=== PATIENT | female | born 1985 | race Caucasian/White ===

== ENCOUNTER 2018-05-24 09:08 | Inpatient (IN) ==
[2018-05-24] MEDS ORDERED: miSOPROStol 200 MCG Tablet RECTAL PRN (09:47)
[2018-05-24] MEDS ORDERED: Tranexamic Acid Inj 1,000 MG in Sodium Chlor 0.9% Inj 100 ML IV.SIG PRN (09:47)
[2018-05-24] MEDS ORDERED: Sod Chloride 0.9% Inj 1,000 ML IV.CONT PRN (09:47)
[2018-05-24] MEDS ORDERED: Sodium Chlor 0.9% Inj 500 ML IV.SIG PRN (09:47)
[2018-05-24] MEDS ORDERED: fentaNYL Citrate Inj 100 MCG/2 ML Ampul IV.PUSH PRN ×2 (09:47)
[2018-05-24] MEDS ORDERED: Naloxone Inj 0.4 MG/ML Vial IV.PUSH PRN ×2 (09:47→23:43)
[2018-05-24] MEDS ORDERED: Methylergonovine Inj 0.2 MG/ML Ampul IM PRN (09:47)
[2018-05-24] MEDS ORDERED: Silver Nitrate/Potassium Nitrate Applicator Sticks TOPICAL PRN (09:47)
[2018-05-24] MEDS ORDERED: Carboprost Tromethamine Inj 250 MCG/ML Ampul IM PRN (09:47)
[2018-05-24] MEDS ORDERED: Oxytocin 30 Units/500ml Premix 30 UNITS/500 ML BAG IV.SIG ONE (09:47)
[2018-05-24] MEDS ORDERED: Citric Acid/Sodium Citrate Liq 30 ML UDC PO SCH (10:00)
--- NOTE | 2018-05-24 10:05 | P.HPOB ---
History of Present Illness Primary Care Physician: No Primary Care Physician Chief Complaint: oligohydramnios History of Present Illness: 32 yo with iup at 37w6d by first trimester u/s was seen yesterday for bola visit. She stated that she has had significantly reduced movement. She states that she may feel 1-2 movements. She did have a bpp that was 8/8, prolonged monitoring on AP that was reassuring/reactive over 4 hours and she did note increased movement. Denies present contractions, vb, or lof. She was scheduled this am at [facility] for repeat bpp that noted oligohydramnios so she will be admitted for iol. She is GBS negative, O +. She has had good pnc initiated at 7 wk. PNC c/b : hypothyroidism - on armour thyroid 45 micrograms anxiety - on zoloft 50mg daily HSV - on valtrex suppression and no active lesions UDF - desires btl S>D - last growth u/s at 35wk 84%ile( st 6 lb 11 oz) with AC and FL 90%ile PMH: anxiety, hypothyroid, seasonal allergies PSH: denies OB : G1 MAB 11 wk; G2 09/2015 FT [employer], Male, 7 lb 11 oz [employer]: h/o HPV not 16/18 in 2017. HSV Fam: Denies genetic disorders Soc: neg tob/etoh,doa. Works at [employer] - Inpatient Certification I certify that the inpatient services were ordered in accordance with Medicare regulations governing the order. This includes certification that hospital inpatient services are reasonable and necessary and in the case of services not specified as inpatient-only under 42 CFR 419.22(n), that they are appropriately provided as inpatient services in accordance to with the 2-midnight benchmark under 43 CFR 412.3(e) Estimated Total Length of Stay (Days): 3 Plans for Post Hospital Care: Home Review of Systems All other systems reviewed negative except as stated in HPI PMFSH - Travel History Recent Travel in the [place] Within the Last 8 Weeks: No Recent Travel Out of the Country Within the Last 8 Weeks: No - Immunization History Tetanus Immunization: <5 Years Hx Influenza Vaccine This Season: No Medications and Allergies Active Medications: Active Medications Carboprost Tromethamine (Hemabate Inj) 250 mcg IM PRN PRN PRN Reason: hemorrhage see labe Citric Acid/Sodium Citrate (Sodium Citrate/Citric Acid Liq) 30 ml PO [facility] Stop: 05/28/18 09:59 Fentanyl Citrate (Fentanyl Inj) 100 mcg IV.PUSH Q1H PRN PRN Reason: PAIN SCALE 6 TO 10 Fentanyl Citrate (Fentanyl Inj) 50 mcg IV.PUSH Q1H PRN PRN Reason: Pain Scale 3 - 5 Lactated Ringer's (Lr 1000 Ml Inj) 1,000 mls @ 125 mls/hr IV.CONT .Q8H DANN Lactated Ringer's (Lr 1000 Ml Inj) 1,000 mls @ 3,000 mls/hr IV.SIG UNSCH PRN PRN Reason: compromise or epidural Sodium Chloride (Ns Inj) 500 mls @ 1,000 mls/hr IV.SIG UNSCH PRN PRN Reason: SEE LABEL COMMENTS Sodium Chloride (Ns Inj) 1,000 mls @ 100 mls/hr IV.CONT .Q10H PRN PRN Reason: SEE LABEL COMMENTS Oxytocin (Pitocin 30 Units/Ns 500 Ml Premix) 30 units in 500 mls @ 999 mls/hr IV.SIG BOLUS ONE Stop: 05/24/18 10:17 Tranexamic Acid 1,000 mg/ (Sodium Chloride) 110 mls @ 200 mls/hr IV.SIG ONCE PRN PRN Reason: hemorrhage Lidocaine HCl (Xylocaine 1% Inj) 0.1 ml I-DERMAL PRN PRN PRN Reason: For IV start Stop: 05/27/18 09:46 Lidocaine HCl (Xylocaine 1% Inj) 10 ml INFILTRATN UNSCH PRN PRN Reason: For episiotomy repair Methylergonovine Maleate (Methergine Inj) 0.2 mg IM PRN PRN PRN Reason: SEE LABEL COMMENTS Mineral Oil (Muri-Lube Oil) 10 ml TOPICAL PRN PRN PRN Reason: PRN perineal massage Misoprostol (Cytotec) 800 mcg RECTAL PRN PRN PRN Reason: hemorrhage Misoprostol (Cytotec) 25 mcg VAGINAL ONCE ONE Stop: 05/24/18 09:48 Misoprostol (Cytotec) 25 mcg VAGINAL ONCE PRN PRN Reason: For cervical ripening Stop: 05/25/18 13:48 Naloxone HCl (Narcan Inj) 0.1 mg IV.PUSH Q2M PRN PRN Reason: for opiate reversal Ondansetron HCl (Zofran Inj) 4 mg IV.PUSH Q6H PRN PRN Reason: NAUSEA OR VOMITING Oxytocin (Pitocin Inj) 10 unit IM PRN PRN PRN Reason: SEE LABEL COMMENTS Silver Nitrate/Potassium Nitrate (Silver Nitrate Applicators) 1 applicator TOPICAL PRN PRN PRN Reason: Vaginal laceration bleeding Sodium Chloride (Ns Flush) 2 ml IV.FLUSH BID DANN Sodium Chloride (Ns Flush) 2 ml IV.FLUSH PRN PRN PRN Reason: FLUSH AFTER USING IV ACCESS Terbutaline Sulfate (Brethine Inj) 0.25 mg SQ PRN PRN PRN Reason: Uterine Tachysystole Allergies Allergy/AdvReac Type Severity Reaction Status Date / Time No Known Allergies Allergy Verified 05/23/18 14:59 Home Medications Medication Instructions Recorded Confirmed Type vit,[id number] 1 tab PO DAILY 05/23/18 05/23/18 History [PNV 29-1] sertraline [Zoloft] 50 mg PO DAILY 05/23/18 05/23/18 History thyroid (pork) [ADDICTIONS THERAPIST Thyroid] 60 mg PO DAILY 05/23/18 05/24/18 History valacyclovir [Valtrex] 500 mg PO DAILY 05/23/18 05/24/18 History Exam Vital signs: Vital Signs 05/24/18 09:24 Temperature 97.8 F Pulse Rate 98 H Respiratory Rate 18 Blood Pressure 130/70 Intake & Output 05/23/18 05/24/18 05/24/18 18:59 06:59 18:59 Weight 90.718 kg Other: Weight On Admission 90.718 kg - Constitutional no acute distress - Routine HEENT Exam Head: Present: normocephalic Eye: Present: EOMI - Routine Neck Exam Present: full ROM - Routine Respiratory Exam Present: CTA bilaterally. Absent: accessory muscle use - Routine Cardiovascular Exam Present: RRR. Absent: murmur - Routine Abdominal Exam Comments: gravid - Routine Exam Comments: 3 - Routine Extremities Exam Absent: cyanosis, clubbing, edema - Routine Neurological Exam Present: alert, oriented X3 Results - Labs Group B Strep: Negative Caprini VTE Risk Assessment Caprini VTE Risk Assessment: No/Low Risk (score <= 1) Caprini Risk Assessment Model: Point Value = 1 Point Value = 2 Point Value = 3 Point Value = 5 Age 41-60 Minor surgery BMI > 25 kg/m2 Swollen legs Varicose veins or History of unexplained or recurrent spontaneous Oral contraceptives or hormone replacement Sepsis (< 1 month) Serious lung disease, including pneumonia (< 1 month) Abnormal pulmonary function Acute myocardial infarction Congestive heart failure (< 1 month) History of inflammatory bowel disease Medical patient at bed rest Age 61-74 Arthroscopic surgery Major open surgery (> 45 min) Laparoscopic surgery (> 45 min) Malignancy Confined to bed (> 72 hours) Immobilizing plaster cast Central venous access Age >= 75 History of VTE Family history of VTE Factor V Leiden Prothrombin [id number] Lupus anticoagulant Anticardiolipin antibodies Elevated serum homocysteine Heparin-induced thrombocytopenia Other congenital or acquired thrombophilia Stroke (< 1 month) Elective arthroplasty Hip, pelvis, or leg fracture Acute spinal cord injury (< 1 month) Prophylaxis Regimen: Total Risk Factor Score Risk Level Prophylaxis Regimen 0-1 Low Early ambulation 2 Moderate Order ONE of the following: *Sequential Compression Device (SCD) *Heparin 5000 units SQ BID 3-4 Higher Order ONE of the following medications: *Heparin 5000 units SQ TID *Enoxaparin/Lovenox 40 mg SQ daily (WT < 150 kg, CrCl > 30 mL/min) *Enoxaparin/Lovenox 30 mg SQ daily (WT < 150 kg, CrCl > 10-29 mL/min) *Enoxaparin/Lovenox 30 mg SQ BID (WT < 150 kg, CrCl > 30 mL/min) AND/OR *Sequential Compression Device (SCD) 5 or more Highest Order ONE of the following medications: *Heparin 5000 units SQ TID (Preferred with Epidurals) *Enoxaparin/Lovenox 40 mg SQ daily (WT < 150 kg, CrCl > 30 mL/min) *Enoxaparin/Lovenox 30 mg SQ daily (WT < 150 kg, CrCl > 10-29 mL/min) *Enoxaparin/Lovenox 30 mg SQ BID (WT < 150 kg, CrCl > 30 mL/min) AND *Sequential Compression Device (SCD) Assessment and Plan - Diagnosis (1) Oligohydramnios Code(s): O41.00X0 - Oligohydramnios, unspecified trimester, not applicable or unspecified Status: Acute (2) 37 weeks gestation of Code(s): Z3A.37 - 37 weeks gestation of Status: Acute (3) Decreased movement Code(s): O36.8190 - Decreased movements, unspecified trimester, not applicable or unspecified Status: Acute (4) Anxiety Code(s): F41.9 - Anxiety disorder, unspecified Status: Acute (5) HSV (herpes simplex virus) anogenital infection Code(s): A60.9 - Anogenital herpesviral infection, unspecified Status: Acute - Plan 32 yo with iup at 37w6d by first trimester u/s admitted for ioil for oligohydramnios. 1) IOL- will start iol with cervidil, then arom and pit as needed. BPP this am repeated after observation yesterday for decreased movement. 2) GBS negative 3) hypothyroidism - on armour thyroid 45 micrograms 4) anxiety - on zoloft 50mg daily 5) HSV - on valtrex suppression and no active lesions 6) UDF - desires btl 7) S>D - last growth u/s at 35wk 84%ile (wt 6 lb 11 oz) with AC and FL 90%ile.
[2018-05-24 10:27] LABS: Baso % (Auto) 0.2 % (0.0-2.0); Eos # (Auto) 0.1 th/mm3 (0.0-0.4); Eos % (Auto) 0.7 % (0.0-4.0); Hematocrit 34.9 % (35.0-46.0); Hemoglobin 11.9 gm/dL (11.6-15.3); Lymph # (Auto) 1.7 th/mm3 (1.0-4.8); Lymph % (Auto) 19.4 % (9.0-44.0); Mean Corpuscular Hemoglobin 28.9 pg (27.0-34.0); Mean Platelet Volume 8.7 fL (7.0-11.0); Mono # (Auto) 0.5 th/mm3 (0.0-0.9); Mono % (Auto) 5.9 % (0.0-8.0); Neut # (Auto) 6.3 th/mm3 (1.8-7.7); Neut % (Auto) 73.8 % (16.0-70.0); Platelet Count 195 th/mm3 (150-450); White Blood Count 8.6 th/mm3 (4.0-11.0)
[2018-05-24 10:35] LABS: Amorphous Sediment,Urine Few /hpf; Bacteria,Urine Rare /hpf; Bilirubin,Urine Negative (Negative); Color,Urine Yellow (Yellw/Straw); Glucose,Urine (UA) Negative (Negative); Leukocyte Esterase,Urine Negative (Negative); Mucus,Urine Few /lpf (Occasional); Nitrite,Urine Negative (Negative); Specific Gravity,Urine 1.014 (1.002-1.035); Squamous Epithelial Cell,Urine 1 /hpf (0-5)
[2018-05-24 10:36] LABS: Clarity,Urine Hazy (Clear)
[2018-05-24] MEDS ORDERED: Diphtheria/Tetanus/Pertussis Vaccine Inj 0.5 ML Syringe IM ONE (16:00)
[2018-05-24] MEDS ORDERED: Oxytocin 30 Units/500ml Premix 30 UNITS/500 ML BAG IV.SIG PRN (16:29)
--- NOTE | 2018-05-24 16:41 | P.OBGPN ---
S: No leakage of fluid doing well having some cramping O: Exam: Deferred FHTs: 120s-130s, moderate variability, accelerations present, overall no decelerations, did have a spontaneous prolonged decelerations lasting 2 minutes with good recovery TOCO: Contractions every 2-3 minutes A/P 32-year-old here at 37 weeks and 6 days for an induction of labor secondary to new finding of oligohydramnios 1. IUP: Category 1 tracing -Female fetus, cephalic by ultrasound today, anterior placenta -Estimated weight on 05/24/2018 equals 3331 g in the 62nd percentile, BRAULIO 4.8 today. 2. Induction of labor secondary to #3, patient score unfavorable, status post PV miso 25 mcg x2, will continue doses up to 4-5, may need further cervical ripening, will continue to watch her for any signs of distress. Anticipate 3. Oligohydramnios: Unknown etiology for delivery, 4. HSV: Has been on prophylaxis throughout her late third trimester, no lesions on arrival 5. Anxiety: Continue home medication 6. Hypothyroidism: Continue home medication
--- NOTE | 2018-05-24 20:28 | P.OBGPN ---
S: No leakage of fluid doing well having some cramping O: Exam: 3-/-2 AROm this check, clear fluid FHTs: 120s-130s, moderate variability, accelerations present, no decelerations, TOCO: Contractions every 2-3 minutes A/P 32-year-old here at 37 weeks and 6 days for an induction of labor secondary to new finding of oligohydramnios 1. IUP: Category 1 tracing -Female fetus, cephalic by ultrasound today, anterior placenta -Estimated weight on 05/24/2018 equals 3331 g in the 62nd percentile, BRAULIO 4.8 today. 2. Induction of labor secondary to #3, cervix changing after 2 dose PV miso, AROm now (815pm) begin pit if no change in 2 hours. Anticipate 3. Oligohydramnios: Unknown etiology, is for delivery, 4. HSV: Has been on prophylaxis throughout her late third trimester, no lesions on arrival 5. Anxiety: Continue home medication 6. Hypothyroidism: Continue home medication
[2018-05-24] MEDS ORDERED: fentaNYL 2MCG-Bupiv 0.125% Epi 150 ML EPIDURAL ONE (20:33)
[2018-05-24] MEDS ORDERED: Lidocaaine 1.5%/Epinephrine 1:200,000 PF Inj 5 ML Amp ONE (21:31)
[2018-05-24] MEDS ORDERED: Lidocaine PF 1% Inj 5 ML Vial ONE (21:31)
[2018-05-24] MEDS ORDERED: fentaNYL Citrate Inj 100 MCG/2 ML Ampul EPIDURAL ONE (22:39)
[2018-05-24] MEDS ORDERED: fentaNYL 2MCG-Bupiv 0.125% Epi 150 ML EPIDURAL PRN (22:39)
--- NOTE | 2018-05-24 23:33 | P.OP ---
Surgeon: Jett Levine MD Operation and Findings: Preoperative diagnosis: 1. Intrauterine at 37 weeks and 6 days 2. Oligohydramnios 3. Hypothyroidism 4. Anxiety Postop diagnosis 1. Same as above status post delivery Procedure 1. Term spontaneous vaginal delivery Surgeon Dr. Jett Levine Alemite Operator: Summer labor and delivery nursing staff Findings: 1. Viable female at 2311, Apgars 8 and 8, weight 3030grams 2. Intact placenta 3 vessel cord at 2315 3. Second-degree perineal laceration repaired with 3-0 Vicryl Anesthesia: Epidural Specimen: Placenta to disposal Estimated blood loss: 300 cc Fluid replacement: Lactated Ringer's and Pitocin Urine output: None recorded DVT prophylaxis: None required Antibiotics: None required Counts: correct x2 Time out done: yes Disposition: Stable to Indications: Patient is a 32-year-old who presented for induction of labor secondary to new finding of oligohydramnios on a routine ultrasound done for decreased movement, she had misoprostol placed for cervical ripening, she was artificially ruptured and progressed after this without further augmentation with reassuring heart tones I was called to the room when she was complete and ready to push. Description of procedure: The patient began pushing after the bed was broken down, the head upon was allowed to restitute naturally for delivery with a supported perineum, with gentle downward guidance the anterior shoulder was delivered followed by gentle upper guidance for the posterior shoulder, the torso and lower extremities were delivered with ease and with continued perineal support. The infant had spontaneous cry and was placed on mom's abdomen for skin to skin contact, we allowed delayed cord clamping. After the cord was clamped and cut, cord blood was obtained. Pitocin was bolused and with fundal massage the placenta was delivered, there is minimal uterine bleeding and uterus was firm. The perineum, vagina and cervix were inspected and found second-degree which was repaired with 3-0 Vicryl in a standard fashion. The patient tolerated the procedure well and was left in the birthing suite with her .
[2018-05-24] MEDS ORDERED: Oxytocin 30 Units/500ml Premix 30 UNITS/500 ML BAG IV.CONT PRN (23:43)
[2018-05-24] MEDS ORDERED: Zolpidem Tartrate 5 MG Tablet PO PRN (23:43)
[2018-05-24] MEDS ORDERED: Benzocaine 20% Top Spray 60 ML Can TOPICAL PRN (23:43)
[2018-05-24] MEDS ORDERED: Bisacodyl 10 MG Supp RECTAL PRN (23:43)
[2018-05-24] MEDS ORDERED: Acetaminophen 325 MG Tablet PO PRN (23:43)
[2018-05-25 01:21] VITALS: RESP 18
[2018-05-25] MEDS: Witch Hazel 50%/Glyderin 12.5% 40 Pad Jar RECTAL PRN (01:36)
[2018-05-25] MEDS: Thyroid 60 MG Tablet PO SCH (05:41)
[2018-05-25] MEDS ORDERED: Measles/Mumps/Rubella Vaccine Inj 0.5 ML Vial SQ ONE (06:00)
[2018-05-25] MEDS ORDERED: Thyroid 15 MG Tablet PO SCH (09:00)
[2018-05-25] MEDS ORDERED: valACYclovir 500 MG Tab PO SCH (09:00)
[2018-05-25] MEDS: Senna/Docusate Sodium 8.6/50 MG Tablet PO SCH ×2 (09:04→20:50)
[2018-05-25] MEDS: Prenatal Vit/Ca/Iron/Folic Acid Tablet PO SCH (09:04)
--- NOTE | 2018-05-25 09:50 | P.PNOB ---
Subjective Post day: 1 Interval history: Doing well, pain controlled, ambulating without difficulty, vaginal bleeding less than menses Objective Vital Signs/I&O: Vital Signs 05/24/18 11:55 05/24/18 13:45 05/24/18 15:55 Temperature Pulse Rate 96 H 88 Respiratory Rate 16 Blood Pressure 120/85 117/63 05/24/18 16:00 05/24/18 16:50 05/24/18 17:55 Temperature 98.7 F Pulse Rate 89 110 H Respiratory Rate 16 Blood Pressure 05/24/18 19:25 05/24/18 19:36 05/24/18 19:40 Temperature 98.1 F Pulse Rate 88 82 80 Respiratory Rate 18 Blood Pressure 130/78 05/24/18 19:45 05/24/18 20:00 05/24/18 20:05 Temperature Pulse Rate 82 80 94 H Respiratory Rate Blood Pressure 05/24/18 20:10 05/24/18 20:40 05/24/18 20:45 Temperature Pulse Rate 80 82 79 Respiratory Rate Blood Pressure 05/24/18 20:50 05/24/18 20:52 05/24/18 20:55 Temperature Pulse Rate 83 107 H 88 Respiratory Rate Blood Pressure 119/102 H 05/24/18 20:56 05/24/18 21:05 05/24/18 21:10 Temperature Pulse Rate 100 H 96 H 96 H Respiratory Rate 20 Blood Pressure 125/82 120/86 137/78 05/24/18 21:15 05/24/18 21:20 05/24/18 21:25 Temperature Pulse Rate 96 H 99 H 111 H Respiratory Rate Blood Pressure 119/67 113/68 139/74 05/24/18 21:31 05/24/18 21:35 05/24/18 21:40 Temperature Pulse Rate 95 H 88 93 H Respiratory Rate Blood Pressure 125/71 128/66 144/67 H 05/24/18 21:45 05/24/18 21:50 05/24/18 21:51 Temperature Pulse Rate 97 H 87 96 H Respiratory Rate Blood Pressure 135/77 130/65 05/24/18 22:00 05/24/18 22:05 05/24/18 22:11 Temperature 97.6 F Pulse Rate 93 H 84 77 Respiratory Rate 18 Blood Pressure 118/62 116/58 L 05/24/18 22:25 05/24/18 22:35 05/24/18 22:40 Temperature Pulse Rate 111 H 114 H 84 Respiratory Rate Blood Pressure 129/99 H 05/24/18 22:45 05/24/18 22:50 05/24/18 23:00 Temperature Pulse Rate 102 H 90 94 H Respiratory Rate Blood Pressure 124/83 05/24/18 23:05 05/24/18 23:30 05/24/18 23:31 Temperature Pulse Rate 73 87 Respiratory Rate 18 Blood Pressure 112/59 L 131/65 05/24/18 23:45 05/25/18 00:00 05/25/18 00:03 Temperature 97.7 F Pulse Rate 78 Respiratory Rate 18 17 Blood Pressure 124/73 05/25/18 00:18 05/25/18 00:30 05/25/18 01:20 Temperature 98.3 F Pulse Rate 81 98 H 75 Respiratory Rate 18 Blood Pressure 111/55 L 124/73 108/68 05/25/18 08:06 Temperature 97.7 F Pulse Rate 81 Respiratory Rate 18 Blood Pressure 113/68 Intake & Output 05/24/18 05/25/18 05/25/18 18:59 06:59 18:59 Weight 90.718 kg Other: Weight On Admission 90.718 kg Result Diagrams: 05/24/18 09:35 Objective Remarks: GENERAL: Well-nourished, well-developed patient. CARDIOVASCULAR: Regular rate and rhythm without murmurs, gallops, or rubs. RESPIRATORY: Breath sounds equal bilaterally. No accessory muscle use. ABDOMEN/GI: Abdomen soft, non-tender. Fundus: Firm, non-tender at umbilicus. GENITOURINARY: Light to moderate bleeding. EXTREMITIES: No cyanosis or edema, non-tender, without signs of DVT. Medications and IVs: Active Medications Acetaminophen (Tylenol) 650 mg PO Q4H PRN PRN Reason: PAIN SCALE 1 TO 2 Al Hydroxide/Mg Hydroxide (Milk Of Magnesia Liq) 30 ml PO Q12H PRN PRN Reason: Mild Constipation Benzocaine (Americaine 20% Top [place]) 1 spray TOPICAL Q4H PRN PRN Reason: For Perineum Discomfort Last Admin: 05/25/18 01:36 Dose: 1 spray Bisacodyl (Dulcolax Supp) 10 mg RECTAL DAILY PRN PRN Reason: SEVERE CONSITIPATION Ephedrine Sulfate (Ephedrine/Ns Syringe) 10 mg IV.PUSH UNSCH PRN PRN Reason: SEE LABEL COMMENTS Stop: 05/25/18 22:39 Oxytocin (Pitocin 30 Units/Ns 500 Ml Premix) 30 units in 500 mls @ 2 mls/hr IV.SIG TITRATE PRN; Protocol PRN Reason: For induction of labor Fentanyl/Bupivacaine/Sodium Chlor (Fentanyl 2 Mcg-Bupiv 0.125% Epi) 150 mls @ 12 mls/hr EPIDURAL PRN PRN PRN Reason: for Labor Pain Last Admin: 05/24/18 21:44 Dose: 12 mls/hr Oxytocin (Pitocin 30 Units/Ns 500 Ml Premix) 30 units in 500 mls @ 100 mls/hr IV.CONT UNSCH PRN PRN Reason: Heavy bleeding Ibuprofen (Motrin) 800 mg PO Q8H PRN PRN Reason: For Cramping Last Admin: 05/25/18 04:43 Dose: 800 mg Lactulose (Lactulose Liq) 30 ml PO DAILY PRN PRN Reason: SEVERE CONSITIPATION Miscellaneous Information (Misc Information) 1 each OTHER UNSCH PRN PRN Reason: SEE LABEL COMMENTS Stop: 05/25/18 22:39 Miscellaneous Information (Misc Information) 1 each OTHER UNSCH PRN PRN Reason: SEE LABEL COMMENTS Stop: 05/25/18 22:39 Naloxone HCl (Narcan Inj) 0.1 mg IV.PUSH Q2M PRN PRN Reason: for opiate reversal Ondansetron HCl (Zofran Odt) 4 mg PO Q6H PRN PRN Reason: NAUSEA OR VOMITING Vit/Calcium/Iron/Folic Ac (Stuartnatal Plus 3) 1 tab PO DAILY DANN Last Admin: 05/25/18 09:04 Dose: 1 tab Senna/Docusate Sodium (Felisha-Colace) 1 tab PO BID DANN Last Admin: 05/25/18 09:04 Dose: 1 tab Sennosides (Senokot) 17.2 mg PO Q12H PRN PRN Reason: Moderate Constipation Sertraline HCl (Zoloft) 50 mg PO HS DANN Sodium Chloride (Ns Flush) 2 ml IV.FLUSH BID DANN Sodium Chloride (Ns Flush) 2 ml IV.FLUSH PRN PRN PRN Reason: FLUSH AFTER USING IV ACCESS Thyroid (Johnson Thyroid) 60 mg PO DAILY@0600 DANN Last Admin: 05/25/18 05:41 Dose: 60 mg Witch Corinna/Glycerin (Tucks Pads) 1 applicatio RECTAL QID PRN PRN Reason: HEMORRHOIDS Last Admin: 05/25/18 01:36 Dose: 1 applicatio Zolpidem Tartrate (Ambien) 5 mg PO HS PRN PRN Reason: SLEEP Assessment and Plan - Plan 32-year-old status post at 37 weeks and 6 days 1. day #1: Doing well, continue routine care, anticipate discharge home tomorrow -Female 2. Hypothyroidism continue home Synthroid 3. Anxiety: Continue home Zoloft.
[2018-05-25] MEDS ORDERED: Sertraline 50 MG Tablet PO SCH (21:00)
--- NOTE | 2018-05-26 07:13 | P.PNOB ---
Subjective Post day: 2 Interval history: ready for d/c home today, no changes from yesterday Objective Vital Signs/I&O: Vital Signs 05/25/18 08:06 05/25/18 19:41 Temperature 97.7 F 97.8 F Pulse Rate 81 73 Respiratory Rate 18 18 Blood Pressure 113/68 124/75 Result Diagrams: 05/24/18 09:35 Objective Remarks: GENERAL: Well-nourished, well-developed patient. CARDIOVASCULAR: Regular rate and rhythm without murmurs, gallops, or rubs. RESPIRATORY: Breath sounds equal bilaterally. No accessory muscle use. ABDOMEN/GI: Abdomen soft, non-tender. Fundus: Firm, non-tender at umbilicus. GENITOURINARY: Light to moderate bleeding. EXTREMITIES: No cyanosis or edema, non-tender, without signs of DVT. Medications and IVs: Active Medications Acetaminophen (Tylenol) 650 mg PO Q4H PRN PRN Reason: PAIN SCALE 1 TO 2 Al Hydroxide/Mg Hydroxide (Milk Of Magnesia Liq) 30 ml PO Q12H PRN PRN Reason: Mild Constipation Benzocaine (Americaine 20% Top [place]) 1 spray TOPICAL Q4H PRN PRN Reason: For Perineum Discomfort Last Admin: 05/25/18 01:36 Dose: 1 spray Bisacodyl (Dulcolax Supp) 10 mg RECTAL DAILY PRN PRN Reason: SEVERE CONSITIPATION Oxytocin (Pitocin 30 Units/Ns 500 Ml Premix) 30 units in 500 mls @ 2 mls/hr IV.SIG TITRATE PRN; Protocol PRN Reason: For induction of labor Fentanyl/Bupivacaine/Sodium Chlor (Fentanyl 2 Mcg-Bupiv 0.125% Epi) 150 mls @ 12 mls/hr EPIDURAL PRN PRN PRN Reason: for Labor Pain Last Admin: 05/24/18 21:44 Dose: 12 mls/hr Oxytocin (Pitocin 30 Units/Ns 500 Ml Premix) 30 units in 500 mls @ 100 mls/hr IV.CONT UNSCH PRN PRN Reason: Heavy bleeding Ibuprofen (Motrin) 800 mg PO Q8H PRN PRN Reason: For Cramping Last Admin: 05/25/18 14:36 Dose: 800 mg Lactulose (Lactulose Liq) 30 ml PO DAILY PRN PRN Reason: SEVERE CONSITIPATION Naloxone HCl (Narcan Inj) 0.1 mg IV.PUSH Q2M PRN PRN Reason: for opiate reversal Ondansetron HCl (Zofran Odt) 4 mg PO Q6H PRN PRN Reason: NAUSEA OR VOMITING Vit/Calcium/Iron/Folic Ac (Stuartnatal Plus 3) 1 tab PO DAILY [facility] Last Admin: 05/25/18 09:04 Dose: 1 tab Senna/Docusate Sodium (Felisha-Colace) 1 tab PO BID [facility] Last Admin: 05/25/18 20:50 Dose: Not Given Sennosides (Senokot) 17.2 mg PO Q12H PRN PRN Reason: Moderate Constipation Sertraline HCl (Zoloft) 50 mg PO HS [facility] Last Admin: 05/25/18 23:59 Dose: Not Given Sodium Chloride (Ns Flush) 2 ml IV.FLUSH BID [facility] Last Admin: 05/25/18 23:58 Dose: Not Given Sodium Chloride (Ns Flush) 2 ml IV.FLUSH PRN PRN PRN Reason: FLUSH AFTER USING IV ACCESS Thyroid (Padroni Thyroid) 60 mg PO DAILY@0600 [facility] Last Admin: 05/25/18 05:41 Dose: 60 mg Witch Corinna/Glycerin (Tucks Pads) 1 applicatio RECTAL QID PRN PRN Reason: HEMORRHOIDS Last Admin: 05/25/18 01:36 Dose: 1 applicatio Zolpidem Tartrate (Ambien) 5 mg PO HS PRN PRN Reason: SLEEP Assessment and Plan - Plan 32-year-old status post at 37 weeks and 6 days 1. day #2: Doing well, d/c home today -Female 2. Hypothyroidism continue home Synthroid 3. Anxiety: Continue home Zoloft.
[2018-05-26] MEDS: Thyroid 60 MG Tablet PO SCH (07:21)
[2018-05-26] MEDS: Witch Hazel 50%/Glyderin 12.5% 40 Pad Jar RECTAL PRN (07:35)
[2018-05-26 08:46] VITALS: BP 116/68; PULSE 68; TEMP 97.7
[2018-05-26] MEDS: Prenatal Vit/Ca/Iron/Folic Acid Tablet PO SCH (11:29)
[2018-05-26] MEDS: Senna/Docusate Sodium 8.6/50 MG Tablet PO SCH (11:29)
== END 2018-05-26 11:41 | disposition home or self-care (01) | DRG 806 ==
LOC: H2E 09:08 → H1EA 05-25 01:16
PROVIDERS: ADMIT Obstetrics & Gynecology; ATTEND Obstetrics & Gynecology
CPT/HCPCS: 59025; 81001; 85025; 86900; 86901; J3010; J7120